=== PATIENT | female | born 1995 | race Caucasian/White ===

== ENCOUNTER 2017-09-11 21:29 | Emergency (ER) | payer BC ==
[~2017-09-11] VITALS: Ht 162.6 cm; Wt 68.0 kg
[2017-09-12] MEDS ORDERED: PROTONIX40 MG PO (01:06)
== END 2017-09-12 01:14 | disposition home or self-care (01) ==
LOC: ED 21:29
DX: R10.13 Epigastric pain (principal)
CPT/HCPCS: 76705; 80053; 81001; 83690; 84703; 85025; 99284

== ENCOUNTER 2019-02-02 13:26 | Emergency (ER) | payer BC ==
[~2019-02-02] VITALS: Ht 162.6 cm; Wt 72.6 kg
[~2019-02-02 13:26] MED LIST: PROTONIX40 MG PO
[2019-02-02] MEDS ORDERED: VENTOLIN HFA18 GM INH (13:48)
[2019-02-02] MEDS ORDERED: AMOXICILLIN500 MG PO (13:48)
[2019-02-02] MEDS ORDERED: FLUOXETINE HCL10 M1 PO (13:49)
== END 2019-02-02 16:14 | disposition home or self-care (01) ==
LOC: ED 13:26
DX: J40 Bronchitis, not specified as acute or chronic (principal); Z79.899 Other long term (current) drug therapy
CPT/HCPCS: 71046; 99284-25; J1100

== ENCOUNTER 2019-06-30 07:29 | Emergency (ER) | payer BC ==
[~2019-06-30] VITALS: Ht 162.6 cm; Wt 72.6 kg
--- OUTSIDE RECORDS SUMMARY | ~2019-06-30 | XMS | Encounter Summary ---
Demographics + + + | Address | [address] [place] [address] | | | [place] [address] | + + + | Home Phone | | + + + | Preferred Language | Unknown | + + + | Marital Status | Single | + + + | Jewish Affiliation | NON | + + + | Race | White | + + + | Ethnic Group | Not or | + + + Author + + + | Author | [facility] | + + + | Organization | [facility] | + + + | Address | Unknown | + + + | Phone | Unavailable | + + + Care Team Providers + +------+ + | Care Business Performance Advisor Name | Role | Phone | + +------+ + PCP | Unavailable | + +------+ + Encounter Details +--------+ + + + + | Date | Type | Department | Care Team | Description | +--------+ + + + + | 02/02/ | Results | [facility] | Morris Caballero MD | | | 2014 | Only | Department | [address] | | | | | | Drive [place], | | | | | | [place] [address] | | | | | | [phone] | | | | | | | | +--------+ + + + + Social History + +-------+ +--------+------+ | Tobacco Use | Types | Packs/Day | Years | Date | | | | | Used | | + +-------+ +--------+------+ | Never Assessed | | | | | + +-------+ +--------+------+ + + + | Sex Assigned at | Date Recorded | | | | + + + | Not on file | | + + + + + + + | Job Start Date | Occupation | Industry | + + + + | Not on file | Not on file | Not on file | + + + + + + + + | Travel History | Travel Start | Travel End | + + + + + + | No recent travel history available. | + + documented as of this encounter Plan of Treatment Not on filedocumented as of this encounter Procedures + +--------+ + + + | Procedure Name | Priori | Date/Time | Associated Diagnosis | Comments | | | ty | | | | + +--------+ + + + | NEEDLE GUIDE [id number] | Routin | 02/02/2015 | | Results for this | | | e | 12:00 PM | | procedure are in the | | | | PDT | | results section. | + +--------+ + + + | WRIST INJECTION | Routin | 02/02/2015 | | Results for this | | EDMUNDO [id number] | e | 12:00 PM | | procedure are in the | | | | PDT | | results section. | + +--------+ + + + | UPPER EXT JNT WITH | Routin | 02/02/2015 | | Results for this | | CON [id number] | e | 9:58 AM | | procedure are in the | | | | PDT | | results section. | + +--------+ + + + documented in this encounter Results NEEDLE GUIDE [id number] (02/02/2015 12:00 PM PDT) + + | Specimen | + + | | + + + + + | Narrative | Performed At | + + + | EXAM: FLUOROSCOPIC GUIDED INJECTION OF THE RIGHT RADIOSCAPHOID | [facility] | | JOINT CLINICAL HISTORY: Right wrist pain, possible ganglion cyst, | DEPARTMENT OF | | impaction syndrome COMPARISON: 12/23/2013 right wrist x-ray | RADIOLOGY | | TECHNIQUE: A towel was placed under the volar aspect of the right | | | wrist to bolster it and maintain it in slight flexion. The entrance | | | site on the dorsal wrist was marked with fluoroscopy. A standard | | | time out was held. The dorsal wrist was prepped and draped in the | | | usual sterile fashion and local anesthesia acheived using 1% | | | Lidocaine. Under real time fluoroscopic guidance, a 25 Ga needle was | | | used to enter the dorsal asepct of the radioscaphoid joint. A | | | small volume of sterile Conray was used to confirm the intraarticular | | | location of the needle. Subsequently, 4 cc of dilute sterile | | | Gadolinium was injected into the joint space. The patient tolerated | | | the procedure without immediate postprocedure complication and was | | | sent to the MRI suite. Flouroscopic time: 0.9 minutes. IMPRESSION: | | | Successful injection of dilute gadolinium into the radioscaphoid | | | joint. | | + + + + + | Procedure Note | + + | Interface, Radiology Results - 05/05/2015 11:03 AM PDT EXAM: FLUOROSCOPIC GUIDED | | INJECTION OF THE RIGHT RADIOSCAPHOID JOINTCLINICAL HISTORY: Right wrist pain, possible | | ganglion cyst, impactionsyndromeCOMPARISON: 12/23/2013 right wrist x-rayTECHNIQUE: A | | towel was placed under the volar aspect of the rightwrist to bolster it and maintain it | | in slight flexion. The entrancesite on the dorsal wrist was marked with fluoroscopy. A | | standardtime out was held. The dorsal wrist was prepped and draped in theusual sterile | | fashion and local anesthesia acheived using 1%Lidocaine. Under real time fluoroscopic | | guidance, a 25 Ga needle wasused to enter the dorsal asepct of the radioscaphoid joint. | | A smallvolume of sterile Conray was used to confirm the intraarticularlocation of the | | needle. Subsequently, 4 cc of dilute sterileGadolinium was injected into the joint | | space. The patient toleratedthe procedure without immediate postprocedure complication | | and wassent to the MRI suite.Flouroscopic time: 0.9 minutes.IMPRESSION: Successful | | injection of dilute gadolinium into theradioscaphoid joint. | |Gadolinium was injected into the joint space. The patient tolerated | |the procedure without immediate postprocedure complication and was | |sent to the MRI suite. | |Flouroscopic time: 0.9 minutes. | |IMPRESSION: Successful injection of dilute gadolinium into the | |radioscaphoid joint. | + + + +---------+ + + | Performing | Address | City/State[facility] | Phone Number | | Organization | | | | + +---------+ + + | [facility] | | | | | RADIOLOGY | | | | + +---------+ + + WRIST INJECTION ARTHRO [id number] (02/02/2015 12:00 PM PDT) + + | Specimen | + + | | + + + + + | Narrative | Performed At | + + + | EXAM: FLUOROSCOPIC GUIDED INJECTION OF THE RIGHT RADIOSCAPHOID | [facility] | | JOINT CLINICAL HISTORY: Right wrist pain, possible ganglion cyst, | DEPARTMENT OF | | impaction syndrome COMPARISON: 12/23/2013 right wrist x-ray | RADIOLOGY | | TECHNIQUE: A towel was placed under the volar aspect of the right | | | wrist to bolster it and maintain it in slight flexion. The entrance | | | site on the dorsal wrist was marked with fluoroscopy. A standard | | | time out was held. The dorsal wrist was prepped and draped in the | | | usual sterile fashion and local anesthesia acheived using 1% | | | Lidocaine. Under real time fluoroscopic guidance, a 25 Ga needle was | | | used to enter the dorsal asepct of the radioscaphoid joint. A | | | small volume of sterile Conray was used to confirm the intraarticular | | | location of the needle. Subsequently, 4 cc of dilute sterile | | | Gadolinium was injected into the joint space. The patient tolerated | | | the procedure without immediate postprocedure complication and was | | | sent to the MRI suite. Flouroscopic time: 0.9 minutes. IMPRESSION: | | | Successful injection of dilute gadolinium into the radioscaphoid | | | joint. | | + + + + + | Procedure Note | + + | Interface, Radiology Results - 05/05/2015 11:03 AM PDT EXAM: FLUOROSCOPIC GUIDED | | INJECTION OF THE RIGHT RADIOSCAPHOID JOINTCLINICAL HISTORY: Right wrist pain, possible | | ganglion cyst, impactionsyndromeCOMPARISON: 12/23/2013 right wrist x-rayTECHNIQUE: A | | towel was placed under the volar aspect of the rightwrist to bolster it and maintain it | | in slight flexion. The entrancesite on the dorsal wrist was marked with fluoroscopy. A | | standardtime out was held. The dorsal wrist was prepped and draped in theusual sterile | | fashion and local anesthesia acheived using 1%Lidocaine. Under real time fluoroscopic | | guidance, a 25 Ga needle wasused to enter the dorsal asepct of the radioscaphoid joint. | | A smallvolume of sterile Conray was used to confirm the intraarticularlocation of the | | needle. Subsequently, 4 cc of dilute sterileGadolinium was injected into the joint | | space. The patient toleratedthe procedure without immediate postprocedure complication | | and wassent to the MRI suite.Flouroscopic time: 0.9 minutes.IMPRESSION: Successful | | injection of dilute gadolinium into theradioscaphoid joint. | |Gadolinium was injected into the joint space. The patient tolerated | |the procedure without immediate postprocedure complication and was | |sent to the MRI suite. | |Flouroscopic time: 0.9 minutes. | |IMPRESSION: Successful injection of dilute gadolinium into the | |radioscaphoid joint. | + + + +---------+ + + | Performing | Address | City/State/[facility] | Phone Number | | Organization | | | | + +---------+ + + | [facility] | | | | | RADIOLOGY | | | | + +---------+ + + UPPER EXT JNT WITH CON [id number] (02/02/2015 9:58 AM PDT) + + | Specimen | + + | | + + + + + | Narrative | Performed At | + + + | Exam: MRI of right wrist, with intra-articular Magnevist, | [facility] | | pediatric. Indication: 19-year-old female with dorsal wrist pain, | DEPARTMENT OF | | possible ganglion cyst, possible impaction syndrome. Comparison: | RADIOLOGY | | No prior MRI. AP and lateral wrist radiographs of December 23, 2013. | | | No recent radiographs are available. Findings: MRI images were | | | obtained in all three imaging planes. There is normal bone marrow | | | signal in distal radius and ulna and in carpal bones. There is a | | | neutral ulnar variance. There are no signs of ulnar impaction | | | syndrome, bone contusion, fracture or AVN. Articular cartilage | | | appears maintained. There is contrast in the proximal radiocarpal row | | | and also in a normal prestyloid recess. There is fluid/edema and/or | | | extrasated contrast in soft tissues of the dorsal wrist, with some | | | early extraarticular contrast suggested on fluoroscopic images | | | acquired during the injection. There is fluid around extensor carpi | | | radialis brevis and longus tendons, series 9, image 3, and more | | | distally smaller amount of fluid dorsally. Findings are probably due | | | to tenosynovitis. There are no signs of TFCC tear or contrast in the | | | distal radioulnar joint. Scapholunate and lunatotriquetral | | | ligaments appear intact. There is no contrast extending into middle | | | carpal row. No evidence of ganglion cyst. Tendons show normal | | | size, contour and very low signal intensity. Impression: 1. No | | | evidence of ganglion cyst, impaction syndrome or other bone changes. | | | Ligaments and tendons appear intact. 2. There is fluid around | | | extensor carpi radialist brevis and longus tendons, probably due to | | | tenosynovitis. 3. There is more diffuse dorsal soft tissue | | | fluid/edema/extravasated contrast. These can be differentiated by a | | | repeat axial fat sat T2 sequence (fluid/edema should persist, while | | | an injection artifact should resolve since the prior study). | | + + + + + | Procedure Note | + + | Interface, Radiology Results - 03/14/2015 7:58 PM PDT Exam: MRI of right wrist, | | with intra-articular Maxine pediatric.Indication: 19-year-old female with dorsal | | wrist pain, possibleganglion cyst, possible impaction syndrome.Comparison: No prior | | MRI. AP and lateral wrist radiographs of 2013. No recent radiographs are | | available.Findings: MRI images were obtained in all three imaging planes.There is | | normal bone marrow signal in distal radius and ulna and incarpal bones. There is a | | neutral ulnar variance. There are no signsof ulnar impaction syndrome, bone contusion, | | fracture or AVN.Articular cartilage appears maintained.There is contrast in the proximal | | radiocarpal row and also in anormal prestyloid recess.There is fluid/edema and/or | | extrasated contrast in soft tissues ofthe dorsal wrist, with some early extraarticular | | contrast suggestedon fluoroscopic images acquired during the injection. There is | | fluidaround extensor carpi radialis brevis and longus tendons, series 9,image 3, and | | more distally smaller amount of fluid dorsally.Findings are probably due to | | tenosynovitis.There are no signs of TFCC tear or contrast in the distal radioulnarjoint. | | Scapholunate and lunatotriquetral ligaments appear intact.There is no contrast | | extending into middle carpal row. No evidenceof ganglion cyst. Tendons show normal | | size, contour and very lowsignal intensity.Impression:1. No evidence of ganglion cyst, | | impaction syndrome or other bonechanges. Ligaments and tendons appear intact.2. There | | is fluid around extensor carpi radialist brevis and longustendons, probably due to | | tenosynovitis.3. There is more diffuse dorsal soft tissue | | fluid/edema/extravasatedcontrast. These can be differentiated by a repeat axial fat sat | | D9imicscup (fluid/edema should persist, while an injection artifactshould resolve since | | the prior study). | |Impression: | |1. No evidence of ganglion cyst, impaction syndrome or other bone | |changes. Ligaments and tendons appear intact. | |2. There is fluid around extensor carpi radialist brevis and longus | |tendons, probably due to tenosynovitis. | |3. There is more diffuse dorsal soft tissue fluid/edema/extravasated | |contrast. These can be differentiated by a repeat axial fat sat T2 | |sequence (fluid/edema should persist, while an injection artifact | |should resolve since the prior study). | + + + +---------+ + + | Performing | Address | City/State/Zipcode | Phone Number | | Organization | | | | + +---------+ + + | [facility] | | | | | RADIOLOGY | | | | + +---------+ + + documented in this encounter Visit Diagnoses Not on filedocumented in this encounter"
--- OUTSIDE RECORDS SUMMARY | ~2019-06-30 | XMS | Clinical Summary ---
Demographics + + + | Address | [address] [place] [address] | | | [place] [address] | + + + | Home Phone | | + + + | Preferred Language | Unknown | + + + | Marital Status | Single | + + + | Muslim Affiliation | NON | + + + | Race | White | + + + | Ethnic Group | Not or | + + + Author + + + | Organization | Unknown | + + + | Address | Unknown | + + + | Phone | Unavailable | + + + Care Team Providers + +------+ + | Care Edi Specialist Name | Role | Phone | + +------+ + PCP | Unavailable | + +------+ + Source Comments LAINEY is fully live on both [facility] and [facility] InPatient.[facility] Allergies Not on File Medications Not on file Active Problems Not on file Social History + +-------+ +--------+------+ | Tobacco [...] recent travel history available. | + + Last Filed Vital Signs Not on file Plan of Treatment + + + + + | Health Maintenance | Due Date | Last Done | Comments | + + + + + | Influenza (Flu) | | | | | vaccination (#1) | 9 | | | + + + + + | Pneumococcal | Aged Out | | No longer eligible | | vaccination | | | based on patient's | | | | | age to complete this | | | | | topic | + + + + + Results Not on filefrom Last 3 Months"
--- OUTSIDE RECORDS SUMMARY | ~2019-06-30 | XMS | Encounter Summary ---
Demographics + + + | Address | [address] [place] [address] | | | [place] [address] | + + + | Home Phone | | + + + | Preferred Language | Unknown | + + + | Marital Status | Single | + + + | Hinduism Affiliation | NON | + + + | Race | White | + + + | Ethnic Group | Not or | + + + Author + + + | Author | [facility] | + + + | Organization | [facility] | + + + | Address | Unknown | + + + | Phone | Unavailable | + + + Care Team Providers + +------+ + | Care Animal Cruelty Investigator Name | Role | Phone | + +------+ + PCP | Unavailable | + +------+ + Encounter Details +--------+ + + + + | Date | Type | Department | Care Team | Description | +--------+ + + + + | 06/02/ | Document-Sc | [facility] | Morris Caballero MD | | | 2015 | ann[facility]ose juan | Medical Clinic | [address] [facility] | | | | | Internal Medicine | Drive [place], | | | | | [address] | [place] [address] | | | | | [place], [place] | [phone] | | | | | [address] | | | | | | [phone] | | | +--------+ + + + [...] Not on filedocumented as of this encounter Visit Diagnoses Not on filedocumented in this encounter"
--- OUTSIDE RECORDS SUMMARY | ~2019-06-30 | XMS | Clinical Summary ---
Demographics + + + | Address | [address] [place] [address] | | | [place] [address] | + + + | Home Phone | | + + + | Preferred Language | Unknown | + + + | Marital Status | Single | + + + | Temple Affiliation | NON | + + + | Race | White | + + + | Ethnic Group | Not or | + + + Author + + + | Organization | Unknown | + + + | Address | Unknown | + + + | Phone | Unavailable | + + + Care Team Providers + +------+ + | Care Packing Line Operator Name | Role | Phone | + +------+ + PCP | Unavailable | + +------+ + Source Comments LAINEY is fully live on both [facility] Amb[facility] and [facility] InPatient.[facility] Allergies Not on File Medications Not on [...]
--- OUTSIDE RECORDS SUMMARY | ~2019-06-30 | XMS | Encounter Summary ---
Demographics + + + | Address | [address] [place] [address] | | | [place] [address] | + + + | Home Phone | | + + + | Preferred Language | Unknown | + + + | Marital Status | Single | + + + | Oriental Orthodox Affiliation | NON | + + + | Race | White | + + + | Ethnic Group | Not or | + + + Author + + + | Author | [facility] | + + + | Organization | [facility] | + + + | Address | Unknown | + + + | Phone | Unavailable | + + + Care Team Providers + +------+ + | Care Pickling Machine Operator Name | Role | Phone | [...] annjose juan | Medical Clinic | [facility] | | | | | Internal Medicine | Drive [place], | | | | | [address] | [place] [address] | | | | | [place], [place] | [phone] | | | | | [address] | | | | | | [phone] | | | +--------+ + + + [...]
--- OUTSIDE RECORDS SUMMARY | ~2019-06-30 | XMS | Encounter Summary ---
Demographics + + + | Address | [address] [place] [address] | | | [place] [address] | + + + | Home Phone | | + + + | Preferred Language | Unknown | + + + | Marital Status | Single | + + + | Methodist Affiliation | NON | + + + [...] Team Providers + +------+ + | Care Needle Control Cheniller Name | Role | Phone | + +------+ + PCP | Unavailable | + +------+ + Encounter Details +--------+ + + + + | Date | Type | Department | Care Team | Description | +--------+ + + + + | 12/23/ | Results | [facility] | Morris Caballero MD | | | 2013 | Only | Department | [address] | | | | | | Drive [place], | | | | | | [place] [address] | | | | | | [phone] | | | | | | | [...] | + +--------+ + + + | ORT WRIST 2V | Routin | 12/23/2013 | | Results for this | | [id number] | e | 3:35 PM | | procedure are in the | | | | PDT | | results section. | + +--------+ + + + documented in this encounter Results ORT WRIST 2V [id number] (12/23/2013 3:35 PM PDT) + + | Specimen | + + | | + + + + + | Narrative | Performed At | + + + | EXAM: RIGHT WRIST HISTORY: Pain COMPARISON: None FINDINGS: Three | [facility] | | views of the right wrist were obtained. No fracture, dislocation or | DEPARTMENT OF | | bony destruction is noted. There is a 1.0 x 0.4 cm metallic density | RADIOLOGY | | overlying the metacarpal area present. No soft tissue calcification | | | is seen. IMPRESSION: A metallic density overlying the metacarpal | | | area is noted. An artifact is suspected. | | + + + + + | Procedure Note | + + | Interface, Radiology Results - 03/14/2015 7:00 PM PDT EXAM: RIGHT WRIST | | HISTORY: Pain | | COMPARISON: None | | FINDINGS: Three views of the right wrist were obtained. No fracture, | | dislocation or bony destruction is noted. There is a 1.0 x 0.4 cm | | metallic density overlying the metacarpal area present. No soft | | tissue calcification is seen. | | IMPRESSION: A metallic density overlying the metacarpal area is | | noted. An artifact is suspected. | + + + +---------+ + + [...]
--- OUTSIDE RECORDS SUMMARY | ~2019-06-30 | XMS | Encounter Summary ---
Demographics + + + | Address | [address] [place] [address] | | | [place] [address] | + + + | Home Phone | | + + + | Preferred Language | Unknown | + + + | Marital Status | Single | + + + | Uatsdin Affiliation | NON | + + + | Race | White | + + + | Ethnic Group | Not or | + + + Author + + + | Author | [facility] | + + + | Organization | [facility] | + + + | Address | Unknown | + + + | Phone | Unavailable | + + + Care Team Providers + +------+ + | Care Geotechnical Engineering Technician Name | Role | Phone | + [...] [place], | | | | | | [place] [address] | | | | | | [phone] | | | | | | | [...] | | Results for this | | [address] | e | 3:35 PM | | procedure are in the | | | | PDT | | results section. | + +--------+ + + + documented in this encounter Results ORT WRIST 2V [id number] (12/23/2013 3:35 PM PDT) + + | [...]
--- OUTSIDE RECORDS SUMMARY | ~2019-06-30 | XMS | Encounter Summary ---
Demographics + + + | Address | [address] [place] [address] | | | [place] [address] | + + + | Home Phone | | + + + | Preferred Language | Unknown | + + + | Marital Status | Single | + + + | Gnosticism Affiliation | NON | + + + | Race | White | + + + | Ethnic Group | Not or | + + + Author + + + | Author | [facility] | + + + | Organization | [facility] | + + + | Address | Unknown | + + + | Phone | Unavailable | + + + Care Team Providers + +------+ + | Care Multi Craft Maintenance Technician Name | Role | Phone | [...] [place], | | | | | | [place] [address] | | | | | | [phone] | | | | | | | [...] +--------+ + + + | NEEDLE GUIDE [id number] | Routin | 02/02/2015 | | Results for this | | | e | 12:00 PM | | procedure are in the | | | | PDT | | results section. | + +--------+ + + + | WRIST INJECTION | Routin | 02/02/2015 | | Results for this | | EDMUNDO 04221 | e | 12:00 PM | | procedure are in the | | | | PDT | | results section. | + +--------+ + + + | UPPER EXT JNT WITH | Routin | 02/02/2015 | | Results for this | | CON [id number] | e | 9:58 AM | | procedure are in the | | | | PDT | | results section. | + +--------+ + + + documented in this encounter Results NEEDLE GUIDE [id number] (02/02/2015 12:00 PM PDT) + + | [...] + + | Performing | Address | [facility] | Phone Number | | Organization | | | | + +---------+ + + | [facility] | | | | | RADIOLOG[facility] | | | | + +---------+ + + WRIST INJECTION ARTHRO [id number] (02/02/2015 12:00 PM PDT) + + | [...] + + | Performing | Address | [facility] | Phone Number | | Organization | | | | + +---------+ + + | [facility] | | | | | RADIOLOGY | | | | + +---------+ + + UPPER EXT JNT WITH CON [id number] (02/02/2015 9:58 AM PDT) + + | [...] a repeat axial fat sat | | [id number] (fluid/edema should persist, while an injection artifactshould [...]
[~2019-06-30 07:29] MED LIST changes: +AMOXICILLIN500 MG PO; +FLUOXETINE HCL10 M1 PO; +VENTOLIN HFA18 GM INH
[2019-06-30] MEDS ORDERED: PREPARATION H26 GM TOP (07:58)
[2019-06-30] MEDS ORDERED: NORCO 5-325 TA1 EACH PO ×2 (11:33→18:44)
[2019-06-30] MEDS ORDERED: CLEOCIN HCL300 MG PO (18:44)
== END 2019-06-30 11:53 | disposition home or self-care (01) ==
LOC: ED 07:29
DX: K61.0 Anal abscess (principal); Z88.8 Allergy status to other drugs, medicaments and biological substances; Z79.899 Other long term (current) drug therapy
CPT/HCPCS: 74177; 80053; 84703; 85025; 96361; 99284-25; J1170; J2405; J7030; Q9967

== ENCOUNTER 2019-06-30 16:39 | Day surgery (SDC) | payer BC ==
[~2019-06-30 16:39] MED LIST changes: +NORCO 5-325 TA1 EACH PO; +PREPARATION H26 GM TOP
--- NOTE | 2019-06-30 18:16 | NUR ---
06/30/191815 Baylee Rolon 181: PT ARRIVES TO PACU WITH EYES CLOSED, SEMI CHUA POSITION. PT EASILY AROUSES TO VERBAL STIMULI. PT DENIES PAIN OR NAUSEA.
[2019-06-30] MEDS ORDERED: NORCO 5-325 TA1 EACH PO (18:44)
[2019-06-30] MEDS ORDERED: CLEOCIN HCL300 MG PO (18:44)
--- NOTE | 2019-07-01 05:19 | OR ---
[facility] [address], [place] [address] Signed DATE OF OPERATION: 06/30/2019 SURGEON: Leela Coronel MD PREOPERATIVE DIAGNOSIS: Left anterolateral perianal abscess. POSTOPERATIVE DIAGNOSIS: Left anterolateral subcutaneous perianal abscess. PROCEDURES PERFORMED: 1. Incision and drainage of perianal abscess. 2. Deep wound culture. ESTIMATED BLOOD LOSS: None. INDICATIONS: Sanju is a 23-year-old female, otherwise healthy, who over the last 4-5 days developed pain and swelling in the left anterolateral position of the anus. 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 She recognized this as a probable perianal abscess. She tried various measures and could not get it to come to the surface. She finally came to the emergency room for evaluation. In the emergency room, on physical exam, she clearly has a left anterolateral perianal abscess at about the [address] scan of the abdomen and pelvis confirmed this 26 mm abscess cavity. The ER physician called me and I asked that we check her blood work and her white count was normal at 9.8. Her beta-hCG was negative. We had her come over to the office and I worked during the day for evaluation. She came with her mother. With our medical records custodian and her mom in the room, we could easily see the left anterolateral perianal abscess, it was quite tender, and we really could not perform a digital rectal exam nor endoscopy in the office. I gave Sanju and her mother brochure on hemorrhoids, perianal abscesses, and fistula tracts. We looked it at carefully and I circled the sections relevant to them. I explained to Sanju and her mother that we open these up widely on the skin as close to the anal verge as we possibly can and we allow them to heal in secondarily. Half of them heal fine, the other half will form a fistula tract. The anterior abscesses are usually easily handled than posterior abscesses. It is always a consideration we might have to place a Seton stitch. She understands this will heal secondarily. She had expressed understanding and wished to proceed. We therefore scheduled her immediately after the office visit. Electronically Signed By: LEELA CORONEL MD 07/01/19 0519 PATIENT NAME: SANJU TARANGO OPERATIVE REPORT DATE OF : [birth year] REPORT #: [id number] PHYSICIAN: LEELA CORONEL MD PCP: VESTA AL REPORT IS CONFIDENTIAL AND NOT TO BE RELEASED WITHOUT AUTHORIZATION [facility] [address] [place] [id number] Signed PROCEDURE NOTE: I met with Sanju and her mom once again in our preop area. We had reviewed the above findings. In the meantime, our anesthesia provider placed a saddle block. After that, Sanju was taken into our operating room and placed in the prone aston-knife position with appropriate padding and monitoring in place. Subsequently she was given her heparin along with the SCDs. She was given preoperative antibiotics. She was then prepped and draped in the usual sterile fashion. She was given monitored anesthesia care in addition to the saddle block. On digital rectal exam, one could easily feel the subcutaneous abscess in left anterolateral position. We saw just a tiny bit of pus coming down to the midline. Interestingly, from her anal verge to the dentate line was very short. The rest of the anal canal was unremarkable on examination with the Halfmoon retractor. After this, we developed an elliptical incision at the 7 o'clock position next to the anal verge. Several cubic centimeters of pus was evacuated and cultured. The wound was irrigated and suctioned out until clear. She already has some granulation tissue starting. It tracked over to the dentate line, anterior midline, and it was quite shallow, in fact it was above the sphincter muscles. We simply just opened that another 3 or 4 mm of skin. After this, local anesthetic was injected in and around the lesion. Dakin's solution soaked gauze was packed into the wound and this was covered with an ABD and mesh underwear. After this, Sanju was rotated into the supine position on her hospital bed and taken into recovery room in stable condition. Leela Coronel MD ALB/MODL /[id number] cc: MD Vesta Toure WHNP Copies: LEELA CORONEL MD, KATIE C WHNP ~ Electronically Signed By: LEELA CORONEL MD 07/01/19 0519 PATIENT NAME: SANJU TARANGO OPERATIVE REPORT DATE OF : [birth year] REPORT #: [id number] PHYSICIAN: LEELA CORONEL MD PCP: VESTA AL REPORT IS CONFIDENTIAL AND NOT TO BE RELEASED WITHOUT AUTHORIZATION
== END 2019-06-30 18:55 | disposition home or self-care (01) ==
LOC: OPS 16:39 → DS 16:39
PROVIDERS: Colon & Rectal Surgery
PROC: 0D9Q0ZZ Drainage of Anus, Open Approach (ICD-10-PCS; principal; 2019-06-30 17:30)
DX: K61.0 Anal abscess (principal); F41.9 Anxiety disorder, unspecified; F32.9 Major depressive disorder, single episode, unspecified; Z88.6 Allergy status to analgesic agent; K59.00 Constipation, unspecified; Z79.899 Other long term (current) drug therapy
CPT/HCPCS: 00902; 87070; 87075; 87076; 87077; 87185; 87205; J1644; J2250; J2704; J7121